=== PATIENT | male | born 1985 | race Two or more races ===

== ENCOUNTER 2017-03-01 15:36 | Inpatient (IN) | payer MEDICARE ==
[~2017-03-01] VITALS: Ht 180.3 cm; Wt 91.6 kg
--- NOTE | 2017-03-01 15:40 | NUR ---
31 YO MALE BB SELF. PATIENT IS ALERT X 3, C/O RIGHT HAND INFECTION X 3 DAYS. PATIENT ABULATED TO ER BED WITH STEADY AGITM, SKIN WARM AND DRY, RESP EVEN AND UNLABORED. AWAITING ORDERS FROM PROVIDER, WILL CONTINUE TO MONITOR
--- NOTE | 2017-03-01 15:45 | NUR ---
20G LEFT AC IV STARTED, BLOOD SAMPLE OBTAIEND AND SENT TO LAB
[2017-03-01] MEDS ORDERED: VANCOMYCIN 1 GM VIAL ONE (16:11)
[2017-03-01] MEDS ORDERED: PIPERACILLIN /TAZOBACTAM 3.375 G VIAL IV ONE (16:11)
[2017-03-01] MEDS ORDERED: VANCOMYCIN 1 GM in IV D5W 250 ML IV ONE (16:30)
[2017-03-01] MEDS ORDERED: PIPERACILLIN /TAZOBACTAM 3.375 G in IV D5W 50 ML IV ONE (16:30)
[2017-03-01 16:31] LABS: BASOPHILS % (AUTO) 0.6 % (0.0-2.0); EOSINOPHILS # (AUTO) 0.2 /CMM (0.0-0.7); EOSINOPHILS % (AUTO) 2.1 % (0.0-6.0); HEMATOCRIT 45 % (39-51); HEMOGLOBIN 15.2 g/dL (13.5-17.5); LYMPHOCYTES # (AUTO) 1.8 /CMM (0.8-4.8); LYMPHOCYTES % (AUTO) 22.2 % (20.0-44.0); MEAN CORPUSCULAR HEMOGLOBIN 28 PG (26.0-33.0); MEAN CORPUSCULAR HGB CONC 34 g/dl (31.0-36.0); MEAN CORPUSCULAR VOLUME 84 fL (80-96); MONOCYTES # (AUTO) 0.7 /CMM (0.1-1.30); NEUTROPHILS # (AUTO) 5.5 /CMM (1.8-8.9); NEUTROPHILS % (AUTO) 67.1 % (43.0-81.0); PLATELET COUNT (AUTO) 369 /CMM (150-450); RDW COEFFICIENT OF VARIATION 13.2 (11.5-15.0); WHITE BLOOD COUNT (AUTO) 8.2 K/uL (4.3-11.0)
[2017-03-01 16:42] LABS: CALCIUM, SERUM 8.9 mg/dL (8.5-10.1); CREATININE 0.8 mg/dL (0.6-1.3)
[2017-03-01 16:45] LABS: INR 0.88 (0.87-1.13); PROTHROMBIN TIME 9.1 SECS (9.5-12.7)
[2017-03-01 16:48] LABS: ALBUMIN 2.9 g/dL (3.4-5.0); BILIRUBIN,TOTAL 0.2 mg/dL (0.2-1.0); TOTAL PROTEIN, SERUM 7.3 g/dL (6.4-8.2)
--- NOTE | 2017-03-01 17:26 | NUR ---
CALLED [employer] ENGINEERING SURVEYOR WAS PAGED.
[2017-03-01] MEDS ORDERED: IV NS 0.9% 1,000 ML BAG IV ONE (17:30)
[2017-03-01] MEDS ORDERED: ZOLPIDEM TARTRATE 5 MG TABLET PO PRN (18:30)
[2017-03-01] MEDS ORDERED: ENOXAPARIN SODIUM 40 MG/0.4 ML DISP.SYRIN SQ SCH (18:30)
[2017-03-01] MEDS ORDERED: Z GUARD REMEDY 2 OZ OINT TP PRN (18:30)
[2017-03-01] MEDS ORDERED: ONDANSETRON HCL/PF 4 MG/2 ML VIAL IVP PRN (18:30)
[2017-03-01] MEDS ORDERED: MAGNESIUM HYDROXIDE 30 ML UDC PO PRN (18:30)
[2017-03-01] MEDS ORDERED: MAG HYDROX/AL HYDROX/SIMETH 30 ML UDC PO PRN (18:30)
[2017-03-01] MEDS ORDERED: HYDROCODONE/APAP 5/325MG 1 EACH TABLET PO PRN (18:30)
[2017-03-01] MEDS ORDERED: ACETAMINOPHEN 325 MG TABLET PO PRN (18:30)
--- NOTE | 2017-03-01 19:30 | NUR ---
MS RN OPENING NOTES ADMITTED PT AWAKE,ALERT,VERBALLY RESPONSIVE,ON ROOM AIR,RESPIRATIONS EVEN,UNLABORED, NO SOB NOTED. IV SITE LT FA INTACT,PATENT. DENIES ANY PAIN OR DISCOMFORT AT THIS TIME. LT HAND SWOLLEN, OPEN WOUND PRESENT, DRAINING YELLOWISH DISCHARGE.KEPT CLEAN AND COMFORTABLE,CALL LIGHT WITHIN REACH.WILL CONTINUE TO MONITOR ACCORDINGLY.
[2017-03-01 20:00] VITALS: BP 138/71
[2017-03-01 20:28] VITALS: BP 138/71
[2017-03-01] MEDS: IV NS 0.9% 1,000 ML IV PRN (20:46)
--- NOTE | 2017-03-02 06:51 | NUR ---
MS RN CLOSING NOTES PT IN BED AWAKE, ON ROOM AIR,DENIES ANY PAIN OR DISCOMFORT AT THIS TIME. IV SITE LT FA INTACT,PATENT.CALL LIGHT WITHIN REACH.REFUSED TO BE CLEANED, OFFERED X3 EXPLAINED BENEFITS, REFUSING,REFUSED MORNING CARE. WILL CONTINUE TO MONITOR ACCORDINGLY.
[2017-03-02 08:00] VITALS: BP 95/51
--- NOTE | 2017-03-02 08:06 | NUR ---
WOUND CARE CONSULT: PT PRESENTS WITH OPEN WOUND TO RT HAND, PRESENT ON ADMISSION. RECOMMEND SURGICAL CONSULT. WOUND RECOMMENDATIONS MADE AND DISCUSSED WITH NURSING STAFF. WILL SEE PRN. CUELLAR IN AGREEMENT WITH PLAN OF CARE. Addendum: 03/02/17 at 0808 by WILLIE WEI WNDNU Amended: Links added.
[2017-03-02 08:12] LABS: BASOPHILS % (AUTO) 0.5 % (0.0-2.0); EOSINOPHILS # (AUTO) 0.2 /CMM (0.0-0.7); EOSINOPHILS % (AUTO) 2.2 % (0.0-6.0); HEMATOCRIT 42 % (39-51); HEMOGLOBIN 14.3 g/dL (13.5-17.5); LYMPHOCYTES # (AUTO) 1.9 /CMM (0.8-4.8); LYMPHOCYTES % (AUTO) 25.2 % (20.0-44.0); MEAN CORPUSCULAR HEMOGLOBIN 29 PG (26.0-33.0); MEAN CORPUSCULAR HGB CONC 34 g/dl (31.0-36.0); MEAN CORPUSCULAR VOLUME 86 fL (80-96); MONOCYTES # (AUTO) 0.5 /CMM (0.1-1.30); NEUTROPHILS % (AUTO) 66.1 % (43.0-81.0); PLATELET COUNT (AUTO) 335 /CMM (150-450); RDW COEFFICIENT OF VARIATION 14.1 (11.5-15.0); RED BLOOD CELL COUNT(AUTO) 4.92 MIL/uL (4.5-6.0); WHITE BLOOD COUNT (AUTO) 7.5 K/uL (4.3-11.0)
[2017-03-02 08:23] LABS: CALCIUM, SERUM 8.3 mg/dL (8.5-10.1); CREATININE 0.8 mg/dL (0.6-1.3); MAGNESIUM 1.9 mg/dL (1.8-2.4); PHOSPHORUS 3.7 mg/dL (2.5-4.9); POTASSIUM 4.5 mmol/L (3.5-5.1)
[2017-03-02] MEDS ORDERED: CADEXOMER IODINE 40 GM TUBE TP SCH (09:00)
[2017-03-02] MEDS: IV NS 0.9% 1,000 ML IV PRN (10:36)
--- NOTE | 2017-03-02 14:41 | NUR ---
Social service consult requested by [facility] [address] Aguilar for homelessness. Pt. is a 31 year old male who was admitted to [facility] for right hand cellulitis. Pt. had punched a pole about a week ago resulting in self inflicting injury. Pt. hand appeared inflamed and likely infected. Pt. was seen by wound RN. SW met with pt. bedside. Pt. is alert and oriented x 4. Pt. appeared disheveled. Pt. was cooperative with SW during the assessment. Pt. is homeless and has been homeless for a while now. Pt. has family who are supportive however after speaking with pt's foster mother Ciera, pt. is not able to stay home unless he is productive and has a job. Pt's mother Ciera informed SW that she will meet the pt. this evening at the regular hangout spot he always is at. SW relayed message to the pt. Ciera informed SW that pt. has been linked to services at [facility] and [facility], however pt. is not consistent in following up with those services. Pt. denies using drugs but drinks alcohol occasionally. Pt. has a psychiatric diagnosis of Bipolar disorder. SW gave pt. the following resources that pt. accepted: List of winter shelters, list of homeless resources, food resources and mental health referrals. Pt. was given two bus tokens. Homeless Patient Waiver Form was signed by pt. and placed in pt's chart. Pt's DON Razo and charge master coordinator Nino were informed of pt's discharge plan. No other social service needs are required at this time. SW is available if needed.
--- NOTE | 2017-03-02 14:58 | NUR ---
MS/DISCHARGE NOTE: PATIENT DISCHARGE PER DR HARRIS ORDER AND TO FOLLOW UP WOUND CENTER [phone] TO CORRECTION PT WAS GIVEN TOKENS AND HIS MOTHER WILL MEET HIM IN THE BUS STOP. PT NOTED HAS RIGHT HAND OPEN WOUND EXPLAIN TO PT TO FOLLOW UP WITH WOUND CLINIC. RX GIVEN AND EXPLAIN ALL BELONGINGS WILL PT ,EXIT CARE DONE PRINTED SIGN. PICTURE WAS CELINA YESTERDAY.
== END 2017-03-02 14:50 | disposition home or self-care (01) | DRG 603 ==
LOC: ER 15:37 → MED 18:09
PROVIDERS: ADMIT Internal Medicine; ATTEND Internal Medicine
DX: L03.113 Cellulitis of right upper limb (principal); E87.2 Acidosis; E44.1 Mild protein-calorie malnutrition; S61.401A Unspecified open wound of right hand, initial encounter; Z68.28 Body mass index [BMI] 28.0-28.9, adult; X58.XXXA Exposure to other specified factors, initial encounter; Y93.89 Activity, other specified; Y92.89 Other specified places as the place of occurrence of the external cause
CPT/HCPCS: 36415; 71045-TC; 73130-TC; 80048-TC; 80061-TC; 80076-TC; 83605-TC; 83735-TC; 84100-TC; 85025-TC; 85652-TC; 85730-TC; 87040-TC; 87081-TC; 87186-TC; A4606; A6403; J1650; J2543; J3370; J7030; J7060; Z7610

== ENCOUNTER 2017-03-08 13:17 | Outpatient (CLI) | payer MEDICARE ==
[2017-03-08 13:25] VITALS: BP 112/79
== END 2017-03-08 23:59 | disposition home or self-care (01) ==
LOC: MSC 13:17
PROVIDERS: ATTEND Internal Medicine
DX: S69.91XA Unspecified injury of right wrist, hand and finger(s), initial encounter (principal); E46 Unspecified protein-calorie malnutrition; M79.89 Other specified soft tissue disorders; X58.XXXA Exposure to other specified factors, initial encounter; Y93.89 Activity, other specified; Y92.89 Other specified places as the place of occurrence of the external cause; Y99.8 Other external cause status
CPT/HCPCS: G0463; Z7610 ×2

== ENCOUNTER 2017-04-25 22:08 | Inpatient (IN) | payer MEDICARE ==
[~2017-04-25] VITALS: Ht 185.4 cm; Wt 93.0 kg
--- NOTE | 2017-04-25 23:00 | NUR ---
31 YO MALE BB SELF, C/O COUGH CONGESTION. PATIENT AMBULATED TO ER BED WITH STEADY AGIT, SKIN WARM AND DRY, RESP EVEN AND UNLABORED. PATIENT GOWNED, PLACED ON HEALTHCARE TECHNICIAN, AWAITING ORDERS FROM PROVIDER
[2017-04-26] MEDS ORDERED: IV NS 0.9% 1,000 ML BAG IV ONE
[2017-04-26] MEDS ORDERED: CEFTRIAXONE 1 G VIAL ONE
[2017-04-26] MEDS ORDERED: CEFTRIAXONE 1GM BAG (ER ONLY) 50 ML IV ONE
[2017-04-26] MEDS ORDERED: LEVOFLOXACIN 750 MG /D5W 150ML 150 ML IV ONE ×2
--- NOTE | 2017-04-26 00:04 | NUR ---
PAGED EPIC FOR PANEL
[2017-04-26] MEDS ORDERED: ONDANSETRON HCL/PF 4 MG/2 ML VIAL ONE (00:15)
[2017-04-26] MEDS ORDERED: MORPHINE SULFATE INJ 4 MG/ML DISP.SYRIN ONE (00:16)
[2017-04-26 00:19] LABS: BASOPHILS % (AUTO) 0.2 % (0.0-2.0); EOSINOPHILS # (AUTO) 0.1 /CMM (0.0-0.7); EOSINOPHILS % (AUTO) 0.7 % (0.0-6.0); HEMATOCRIT 33 % (39-51); HEMOGLOBIN 11.5 g/dL (13.5-17.5); LYMPHOCYTES # (AUTO) 1.9 /CMM (0.8-4.8); LYMPHOCYTES % (AUTO) 14.7 % (20.0-44.0); MEAN CORPUSCULAR HEMOGLOBIN 29 PG (26.0-33.0); MEAN CORPUSCULAR HGB CONC 34 g/dl (31.0-36.0); MEAN CORPUSCULAR VOLUME 84 fL (80-96); MONOCYTES % (AUTO) 7.6 % (2.0-12.0); NEUTROPHILS # (AUTO) 9.8 /CMM (1.8-8.9); NEUTROPHILS % (AUTO) 76.8 % (43.0-81.0); PLATELET COUNT (AUTO) 359 /CMM (150-450); RDW COEFFICIENT OF VARIATION 14.5 (11.5-15.0); RED BLOOD CELL COUNT(AUTO) 3.99 MIL/uL (4.5-6.0); WHITE BLOOD COUNT (AUTO) 12.8 K/uL (4.3-11.0)
[2017-04-26 00:29] LABS: CALCIUM, SERUM 8.2 mg/dL (8.5-10.1); CREATININE 0.8 mg/dL (0.6-1.3); POTASSIUM 3.9 mmol/L (3.5-5.1)
[2017-04-26] MEDS ORDERED: MORPHINE SULFATE INJ 2 MG/ML DISP.SYRIN IV ONE (00:30)
[2017-04-26] MEDS ORDERED: ONDANSETRON HCL/PF 4 MG/2 ML VIAL IV ONE (00:30)
--- NOTE | 2017-04-26 00:37 | NUR ---
PATIENT TRANSPORTED TO MS BED VIA GURNEY BY EMT WITHOUT INCIDENT
[2017-04-26 01:00] VITALS: BP 115/68
[2017-04-26] MEDS ORDERED: ZOLPIDEM TARTRATE 5 MG TABLET PO PRN (01:00)
[2017-04-26] MEDS ORDERED: ACETAMINOPHEN 325 MG TABLET PO PRN (01:00)
[2017-04-26] MEDS ORDERED: ONDANSETRON HCL/PF 4 MG/2 ML VIAL IVP PRN (01:00)
[2017-04-26] MEDS ORDERED: ALBUTEROL FS 2.5 MG/0.5 ML VIAL.NEB NEB PRN (01:00)
[2017-04-26] MEDS ORDERED: IPRATROPIUM NEB FS 0.5 MG/2.5 ML AMPUL.NEB NEB PRN (01:00)
[2017-04-26] MEDS ORDERED: Z GUARD REMEDY 2 OZ OINT TP PRN (01:00)
[2017-04-26] MEDS ORDERED: MAGNESIUM HYDROXIDE 30 ML UDC PO PRN (01:00)
--- NOTE | 2017-04-26 01:30 | NUR ---
MS RN NOTE: RECEIVED PATIENT FROM ER, NO ACUTE DISTRESS NOTED. BREATHING EVEN AND UNLABORED, NO SOB NOTED. PATIENT WITH DRY COUGH, NO PHLEGM AT THIS TIME. IV TO LEFT WRIST IN PLACE, INFUSING LEVAQUIN STARTED IN ER. PATIENT WITH BAGS AND REFUSING TO HAVE NURSES CHECK CONTENT OF BAG. EXPLAINED REASON AND NEED TO CHECK BAG, BUT STILL REFUSES. DENIES ANY DRUGS OR DANGEROUS MATERIAL, GAVE FINANCIAL SERVICES REP KNIFE. ORIENTED PATIENT TO ROOM AND USE OF CALL LIGHT. WILL CONTINUE TO MONITOR.
--- NOTE | 2017-04-26 06:15 | NUR ---
MS RN NOTE: PATIENT RESTING IN BED, NO ACUTE DISTRESS NOTED. BREATHING EVEN AND UNLABORED, NO SOB NOTED. IV TO LEFT WRIST IN PLACE. BED LOCKED AND IN LOWEST POSITION, CALL LIGHT IN REACH. WILL ENDORSE TO DAY NURSE TO CONTINUE WITH PLAN OF CARE.
[2017-04-26 08:00] VITALS: BP 107/70
--- NOTE | 2017-04-26 08:00 | NUR ---
MS RN NOTES PATIENT IN BED RESTING NO SOB OR ACUTE DISTRESS NOTED. PATIENT ALERT, ORIENTED X3. PATIENT NOTED WITH NONE PRODUCTIVE COUGH. WITH PERIPHERAL INTACT PATENT. BED IN LOW LOCKED POSITION, CALL LIGHT WITHIN REACH WILL CONTINUE TO MONITOR.
[2017-04-26] MEDS: IV NS 0.9% 1,000 ML IV PRN ×2 (09:35→21:03)
[2017-04-26] MEDS: ENOXAPARIN SODIUM 40 MG/0.4 ML DISP.SYRIN SQ SCH (09:46)
--- NOTE | 2017-04-26 12:00 | NUR ---
MS RN NOTES MS RN NOTED PATIENT SEEN WITH SPEAKING TO HIMSELF. HALLUCINATING NOTIFIED RICKY ESTRADA ORDERS FOR PSYCH CONSULT. NOTED AND CARRIED OUT.
[2017-04-26] MEDS: HYDROCODONE/APAP 5/325MG 1 EACH TABLET PO PRN ×2 (14:29→21:03)
[2017-04-26 16:00] VITALS: BP 113/74
--- NOTE | 2017-04-26 19:16 | NUR ---
MS RN NOTES PATIENT IN BED RESTING NO SOB OR ACUTE DISTRESS NOTED. ALL DUE MEDICATIONS ADMINISTERED. ALL NEEDS MET WILL ENDORSE TO PM SHIFT RAKESH.
--- NOTE | 2017-04-26 19:40 | NUR ---
MS RN NOTE: PATIENT RESTING IN BED, NO ACUTE DISTRESS NOTED. BREATHING EVEN AND UNLABORED, NO SOB NOTED. IV TO LEFT WRIST IN PLACE. BED LOCKED AND IN LOWEST POSITION, CALL LIGHT IN REACH. WILL CONTINUE TO MONITOR.
[2017-04-26 20:16] VITALS: BP 99/48
[2017-04-26] MEDS: LEVOFLOXACIN 500 MG /D5W 100ML 500 MG in PREMIX 1 EA IV SCH (21:03)
--- NOTE | 2017-04-26 21:15 | NUR ---
MS RN NOTE: PATIENT COMPLAINS OF BACK PAIN 08/30, NORCO 5/325MG 1 TAB ORAL GIVEN PER MD ORDER. WILL CONTINUE TO MONITOR.
[2017-04-26] MEDS: CEFTRIAXONE 1 G in IV D5W 50 ML IV SCH (23:51)
[2017-04-27 05:08] LABS: APPEARANCE,URINE CLEAR (CLEAR); BILIRUBIN,URINE NEGATIVE (NEGATIVE); BLOOD, URINE 2+ Ery/uL (NEGATIVE); COLOR,URINE YELLOW (YELLOW); KETONES,URINE NEGATIVE (NEGATIVE); LEUKOCYTE ESTERASE ,URINE 2+ (NEGATIVE); NITRITE, URINE NEGATIVE (NEGATIVE); PROTEIN,URINE NEGATIVE (NEGATIVE); UGLUCOSE NEGATIVE (NEGATIVE); UROBILINOGEN,URINE 0.2 EU/dL (0.2)
[2017-04-27 05:25] LABS: BACTERIA,URINE Few /HPF (None Seen); RBC,URINE 0-2 /HPF (0-2); SQUAMOUS EPITHELIAL CELL,UR Rare /HPF (None Seen); URINE AMORPHOUS URATE Few /HPF (None Seen)
--- NOTE | 2017-04-27 06:15 | NUR ---
MS RN NOTE: PATIENT RESTING IN BED, NO ACUTE DISTRESS NOTED. BREATHING EVEN AND UNLABORED, NO SOB NOTED. IV TO LEFT WRIST IN PLACE, INFUSING NS AT 75 ML/HR. BED LOCKED AND IN LOWEST POSITION, CALL LIGHT IN REACH. WILL ENDORSE TO DAY NURSE TO CONTINUE WITH PLAN OF CARE.
[2017-04-27 06:59] LABS: BASOPHILS % (AUTO) 0.5 % (0.0-2.0); EOSINOPHILS # (AUTO) 0.1 /CMM (0.0-0.7); EOSINOPHILS % (AUTO) 2.2 % (0.0-6.0); HEMATOCRIT 37 % (39-51); HEMOGLOBIN 12.3 g/dL (13.5-17.5); LYMPHOCYTES # (AUTO) 1.5 /CMM (0.8-4.8); LYMPHOCYTES % (AUTO) 23.1 % (20.0-44.0); MEAN CORPUSCULAR HEMOGLOBIN 29 PG (26.0-33.0); MEAN CORPUSCULAR HGB CONC 34 g/dl (31.0-36.0); MEAN CORPUSCULAR VOLUME 85 fL (80-96); MONOCYTES # (AUTO) 0.5 /CMM (0.1-1.30); MONOCYTES % (AUTO) 8.5 % (2.0-12.0); NEUTROPHILS # (AUTO) 4.2 /CMM (1.8-8.9); NEUTROPHILS % (AUTO) 65.7 % (43.0-81.0); PLATELET COUNT (AUTO) 434 /CMM (150-450); RDW COEFFICIENT OF VARIATION 14.9 (11.5-15.0); RED BLOOD CELL COUNT(AUTO) 4.29 MIL/uL (4.5-6.0); WHITE BLOOD COUNT (AUTO) 6.4 K/uL (4.3-11.0)
[2017-04-27 07:21] LABS: CALCIUM, SERUM 8.8 mg/dL (8.5-10.1); CREATININE 0.9 mg/dL (0.6-1.3); MAGNESIUM 2.3 mg/dL (1.8-2.4); PHOSPHORUS 4.9 mg/dL (2.5-4.9); POTASSIUM 4.6 mmol/L (3.5-5.1)
--- NOTE | 2017-04-27 07:25 | NUR ---
MS RN NOTE: PATIENT RESTING IN BED, NO ACUTE DISTRESS NOTED. BREATHING EVEN AND UNLABORED, NO SOB NOTED. IV TO LEFT WRIST IN PLACE, NO REDNESS OR INFILTRATION NOTED. BED LOCKED AND IN LOWEST POSITION, CALL LIGHT IN REACH. WILL CONTINUE TO MONITOR.
[2017-04-27 08:00] VITALS: BP 120/73
[2017-04-27] MEDS: ENOXAPARIN SODIUM 40 MG/0.4 ML DISP.SYRIN SQ SCH (08:39)
[2017-04-27] MEDS: HYDROCODONE/APAP 5/325MG 1 EACH TABLET PO PRN (08:42)
[2017-04-27] MEDS ORDERED: LORAZEPAM 1 MG TABLET PO PRN (09:30)
[2017-04-27] MEDS: DIVALPROEX SODIUM 250 MG TABLET.DR PO SCH ×2 (09:48→21:40)
[2017-04-27] MEDS: ESCITALOPRAM OXALATE (10 MG) 10 MG TABLET PO SCH (09:48)
--- NOTE | 2017-04-27 11:29 | NUR ---
Geologic Technician Consult was requested by KAVIN Dickson regarding homelessness. Pt is a 31 year old male who was admitted to [facility] for back pain. SW met with pt bedside. Pt is alert and oriented x3. Patient is disheveled and malodorous. Pt. states he has been staying at different [facility]ns in [place] and does not have a specific living arrangement. Pts primary contact is his mother Ciera Katz ([phone]). Patient denies any current suicidal or homicidal ideation. Pt reports that he smokes one pack of cigarettes per day and 35 grams of marijuana per day. Pt reports that he does not drink. Patient reports receiving $780 in SSI and does not work. SW provided patient with homeless resources including shelters. Patient is refusing placement at a homeless long term at this time and wishes to return back to the streets. SW completed Homeless Patient Waiver and the pt provided his mothers address ([address] [place] [address]) as his discharge location. Pt was provided with substance abuse resources ([facility] , [facility] , and [facility] [phone]). JAYLEN updated DON Jaimes in regards to pts disposition and homeless resources provided. DON Jaimes told SW she will put an order in for a psych consult. Homeless Patient Waiver was completed and placed in the pts chart. Plan: When pt. is stable he will be discharged. Pt refused placement and will go back into the streets.
--- NOTE | 2017-04-27 12:46 | NUR ---
Pts sister Hui ([phone]) came into Social Work office to find a Detox Center for her brother. JAYLEN provided additional resources to the sister who stated that the patient was ready for an inpatient detox center. JAYLEN called [facility] and spoke with Kary [phone] who asked for the face sheet to be faxed to [facility] ([phone]). JAYLEN emailed and called Omayra Whiting ([phone]) at [facility] and is waiting to hear back from her.
[2017-04-27 16:00] VITALS: BP 115/68
--- NOTE | 2017-04-27 16:23 | NUR ---
JAYLEN followed up with Lola ([phone]) from [facility] who reported that the pt will not be accepted due to medical condition. JAYLEN spoke with case management in regards to placement at a sober living facility or SNF. Pt. reported that he is willing to go to a SNF. Case management will work on a placement
[2017-04-27] MEDS: LACTOBACILLUS RHAMNOSUS GG 1 EACH CAP.SPRINK PO SCH (17:31)
--- NOTE | 2017-04-27 18:54 | NUR ---
MS RN NOTE: PATIENT RESTING IN BED, NO ACUTE DISTRESS NOTED. BREATHING EVEN AND UNLABORED, NO SOB NOTED. IV TO LEFT WRIST IN PLACE, NO REDNESS OR INFILTRATION NOTED. BED LOCKED AND IN LOWEST POSITION, CALL LIGHT IN REACH. WILL CONTINUE TO MONITOR AND ENDORSE TO NEXT SHIFT FOR CONTINUITY OF CARE
--- NOTE | 2017-04-27 19:20 | NUR ---
MS RN NOTE: RECEIVED PATIENT RESTING IN BED, AROUSES EASILY, A/O X3. NO ACUTE DISTRESS NOTED. BREATHING EVEN AND UNLABORED, NO SOB NOTED. IV TO LEFT WRIST INTACT AND PATENT, NO REDNESS OR INFILTRATION NOTED. ALL NEEDS ATTENDED AND MET. SAFETY PRECAUTIONS OBSERVED. CALL LIGHT IN REACH. WILL CONTINUE TO MONITOR.
[2017-04-27 20:00] VITALS: BP 106/54
[2017-04-27] MEDS: LEVOFLOXACIN 500 MG /D5W 100ML 500 MG in PREMIX 1 EA IV SCH (21:40)
[2017-04-27] MEDS: CEFTRIAXONE 1 G in IV D5W 50 ML IV SCH (23:48)
--- NOTE | 2017-04-28 06:42 | NUR ---
MS RN NOTE: PATIENT RESTING IN BED, AROUSES EASILY, A/O X3. NO ACUTE DISTRESS NOTED. BREATHING EVEN AND UNLABORED, NO SOB NOTED. IV TO LEFT WRIST INTACT AND PATENT, NO REDNESS OR INFILTRATION NOTED. ALL NEEDS ATTENDED AND MET. SAFETY PRECAUTIONS OBSERVED. CALL LIGHT WITHIN REACH. WILL ENDORSE TO NEXT SHIFT FOR RAKESH.
--- NOTE | 2017-04-28 07:30 | NUR ---
MS/RN Patient received Patient received from cage shift manager. Resting comfortably at this time, appears in no respiratory distress. All needs attended, will continue to monitor and ensure safety.
[2017-04-28 08:00] VITALS: BP 106/62
[2017-04-28] MEDS: ESCITALOPRAM OXALATE (10 MG) 10 MG TABLET PO SCH (08:26)
[2017-04-28] MEDS: DIVALPROEX SODIUM 250 MG TABLET.DR PO SCH ×2 (08:26→21:34)
[2017-04-28] MEDS: HYDROCODONE/APAP 5/325MG 1 EACH TABLET PO PRN (08:26)
[2017-04-28] MEDS: LACTOBACILLUS RHAMNOSUS GG 1 EACH CAP.SPRINK PO SCH ×2 (08:26→17:22)
[2017-04-28] MEDS: ENOXAPARIN SODIUM 40 MG/0.4 ML DISP.SYRIN SQ SCH (08:28)
--- NOTE | 2017-04-28 08:30 | NUR ---
MS/RN Pain Complaining of generalized pain, norco one tablet given as ordered. Will monitor effectiveness.
--- NOTE | 2017-04-28 09:15 | NUR ---
MS/RN Pain reassessment Pain level now 3/10, states that feeling more comfortable.
--- NOTE | 2017-04-28 12:41 | NUR ---
MS/RN S/B Nikolai Graves FUR SEWER Seen by FUR SEWER - to remain in hospital overnight, pillowcase cleaner to arrange rehab. Sister Hui called by FUR SEWER, updated as to plan of care.
[2017-04-28 16:00] VITALS: BP 114/62
--- NOTE | 2017-04-28 18:40 | NUR ---
MS/RN End note Patient remains in stable condition, appears to be coughing less this afternoon. Denies any pain or discomfort. Updated as to discharge plan to SNF tomorrow to complete anti-biotic course and is in agreement. All needs attended, will endorse to plant operator/shift supervisor.
--- NOTE | 2017-04-28 19:10 | NUR ---
MS RN NOTE: RECEIVED PATIENT RESTING IN BED, AROUSES EASILY, A/O X3. NO ACUTE DISTRESS NOTED. BREATHING EVEN AND UNLABORED, NO SOB NOTED. ALL NEEDS ATTENDED AND MET. SAFETY PRECAUTIONS OBSERVED. CALL LIGHT IN REACH. WILL CONTINUE TO MONITOR.
[2017-04-28 20:00] VITALS: BP 114/64
[2017-04-28] MEDS: LEVOFLOXACIN 500 MG /D5W 100ML 500 MG in PREMIX 1 EA IV SCH (21:34)
--- NOTE | 2017-04-28 22:30 | NUR ---
IV ON LEFT WRIST LEAKING, REMOVED, NO BLEEDING NOTED. INSERTED IV ON RIGHT HAND G# 20, X 1 ATTEMPT. WITH GOOD VENOUS RETURN, PT DICK WELL.
[2017-04-29] MEDS: CEFTRIAXONE 1 G in IV D5W 50 ML IV SCH (00:26)
[2017-04-29 06:30] LABS: BASOPHILS % (AUTO) 0.3 % (0.0-2.0); EOSINOPHILS # (AUTO) 0.2 /CMM (0.0-0.7); HEMATOCRIT 41 % (39-51); HEMOGLOBIN 13.9 g/dL (13.5-17.5); LYMPHOCYTES # (AUTO) 2.4 /CMM (0.8-4.8); LYMPHOCYTES % (AUTO) 22.1 % (20.0-44.0); MEAN CORPUSCULAR HEMOGLOBIN 29 PG (26.0-33.0); MEAN CORPUSCULAR HGB CONC 34 g/dl (31.0-36.0); MEAN CORPUSCULAR VOLUME 85 fL (80-96); MONOCYTES # (AUTO) 0.5 /CMM (0.1-1.30); MONOCYTES % (AUTO) 4.9 % (2.0-12.0); NEUTROPHILS # (AUTO) 7.7 /CMM (1.8-8.9); NEUTROPHILS % (AUTO) 70.7 % (43.0-81.0); PLATELET COUNT (AUTO) 548 /CMM (150-450); RDW COEFFICIENT OF VARIATION 15.3 (11.5-15.0); RED BLOOD CELL COUNT(AUTO) 4.84 MIL/uL (4.5-6.0); WHITE BLOOD COUNT (AUTO) 10.9 K/uL (4.3-11.0)
--- NOTE | 2017-04-29 06:40 | NUR ---
MS RN NOTE: PATIENT RESTING IN BED, AROUSES EASILY, A/O X3. NO ACUTE DISTRESS NOTED. BREATHING EVEN AND UNLABORED, NO SOB NOTED. ALL NEEDS ATTENDED AND MET. SAFETY PRECAUTIONS OBSERVED. CALL LIGHT IN REACH. WILL ENDORSE TO NEXT SHIFT FOR RAKESH.
[2017-04-29 06:45] LABS: CALCIUM, SERUM 8.7 mg/dL (8.5-10.1); CREATININE 0.9 mg/dL (0.6-1.3); POTASSIUM 4.2 mmol/L (3.5-5.1)
[2017-04-29 08:00] VITALS: BP 125/71
[2017-04-29] MEDS: ESCITALOPRAM OXALATE (10 MG) 10 MG TABLET PO SCH (08:40)
[2017-04-29] MEDS: DIVALPROEX SODIUM 250 MG TABLET.DR PO SCH (08:40)
[2017-04-29] MEDS: LACTOBACILLUS RHAMNOSUS GG 1 EACH CAP.SPRINK PO SCH ×2 (08:40→17:46)
[2017-04-29] MEDS: ENOXAPARIN SODIUM 40 MG/0.4 ML DISP.SYRIN SQ SCH (08:41)
--- NOTE | 2017-04-29 09:00 | NUR ---
M/S RN - AM Notes Patient alert and oriented, denies SOB, no c/o pain, tolerating room air, remain afebrile, compliant with medications. Saline lock on the right hand with no signs of infiltration. Labs reviewed, noted with elevated platelets. Patient independent with ADLs. Continue with Rocephin and Levaquin IV for Pneumonia until 05/02/17. Possible discharge to [facility] today.
[2017-04-29] MEDS ORDERED: LEVO750T21 PO (13:18)
[2017-04-29] MEDS ORDERED: ESCI10TA PO (13:18)
[2017-04-29] MEDS ORDERED: DIVA250T4 PO (13:18)
[2017-04-29 16:00] VITALS: BP 120/71
--- NOTE | 2017-04-29 18:45 | NUR ---
M/S RN - Discharge Patient feeling better, A/O x 3, discharged to [facility] in stable condition. Reviewed discharge instructions with DON Moyer Finishing Technician and she verbalized full understanding and all questions answered to her satisfaction. All belongings with pt and he denies any missing items. VSS, denies pain, afebrile, no c/o SOB, tolerating room air, no apparent distress seen. Heplock removed on the right hand with catheter tip intact, no redness and no swelling noted at the site. Skin is intact, pt refused photo to be taken. Discharge papers sent with ambulance crew. Sister Hui [phone] aware of discharge.
== END 2017-04-29 18:45 | DRG 871 ==
LOC: ER 22:08 → MEDSG2 04-26 00:33
PROVIDERS: ADMIT Nurse Practitioner Acute Care; ATTEND Nurse Practitioner Acute Care
DX: A41.9 Sepsis, unspecified organism (principal); J18.9 Pneumonia, unspecified organism; E87.1 Hypo-osmolality and hyponatremia; F31.62 Bipolar disorder, current episode mixed, moderate; D64.9 Anemia, unspecified; F17.210 Nicotine dependence, cigarettes, uncomplicated; Z59.0 Homelessness; F12.90 Cannabis use, unspecified, uncomplicated
CPT/HCPCS: 36415; 71045-TC; 80048-TC; 80061-TC; 80305; 81000-TC; 83735-TC; 84100-TC; 85025-TC; 87040-TC; 87081-TC; 87086-TC; 87400; A4216; A4606; J0696; J1650; J1956; J2270; J2405; J7030; J7060; Z7610

== ENCOUNTER 2018-07-14 08:46 | Emergency (ER) | payer MEDICARE, MEDICAID ==
[~2018-07-14] VITALS: Ht 180.3 cm; Wt 65.8 kg
[~2018-07-14 08:46] MED LIST: DIVA250T4 PO; ESCI10TA PO; LEVO750T21 PO
[2018-07-14 08:54] VITALS: BP 124/81
[2018-07-14] MEDS ORDERED: ALBUTEROL FS 2.5 MG/3 ML VIAL.NEB ONE (09:15)
[2018-07-14] MEDS ORDERED: IPRATROPIUM NEB FS 0.5 MG/2.5 ML AMPUL.NEB ONE (09:15)
[2018-07-14] MEDS ORDERED: predniSONE 20 MG TABLET ONE (09:26)
[2018-07-14] MEDS ORDERED: predniSONE 20 MG TABLET PO ONE (09:30)
[2018-07-14] MEDS ORDERED: IPRATROPIUM NEB FS 0.5 MG/2.5 ML AMPUL.NEB NEB ONE (09:30)
[2018-07-14] MEDS ORDERED: ALBUTEROL FS 2.5 MG/3 ML VIAL.NEB NEB ONE (09:30)
== END 2018-07-14 09:41 | disposition home or self-care (01) ==
LOC: ER 08:50
DX: J18.9 Pneumonia, unspecified organism (principal); J98.01 Acute bronchospasm; F17.200 Nicotine dependence, unspecified, uncomplicated; F12.10 Cannabis abuse, uncomplicated; Z91.013 Allergy to seafood; Z91.030 Bee allergy status; Z88.8 Allergy status to other drugs, medicaments and biological substances
CPT/HCPCS: 94640; 99283; J7512